=== PATIENT | male | born 2000 | race Hispanic/Latino ===

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

== ENCOUNTER 2022-10-08 15:30 | Emergency (ER) | payer OTHER ==
[~2022-10-08] VITALS: Ht 175.3 cm; Wt 70.4 kg
[2022-10-08 19:02] LABS: RSV AMPLIFICATION NEGATIVE (NEGATIVE)
[2022-10-08] MEDS ORDERED: IBUPROFEN 600MG TAB PO ONE (19:10)
[2022-10-08] MEDS ORDERED: IBUP1TAB6 PO (19:10)
[2022-10-08 19:15] VITALS: BP 138/88
== END 2022-10-08 19:20 | disposition home or self-care (01) ==
LOC: M ED 15:30
DX: J02.9 Acute pharyngitis, unspecified (principal); F84.0 Autistic disorder; F90.9 Attention-deficit hyperactivity disorder, unspecified type; G40.89 Other seizures; Z79.1 Long term (current) use of non-steroidal anti-inflammatories (NSAID)

== ENCOUNTER 2023-06-09 00:26 | Emergency (ER) | payer OTHER, SELFPAY ==
[~2023-06-09 00:26] MED LIST changes: +IBUP1TAB6 PO
[2023-06-09] MEDS ORDERED: NS 1,000 ML IV ONE (01:25)
[2023-06-09] MEDS ORDERED: diphenhydrAMINE 50MG/ML VIAL IV ONE (01:25)
[2023-06-09] MEDS ORDERED: METOCLOPRAMIDE INJ 10MG/2ML VIAL IV ONE (01:25)
[2023-06-09] MEDS ORDERED: ACETAMINOPHEN *IV* 1,000 MG in IV 1 EA IV ONE (01:25)
[2023-06-09 01:59] LABS: IONIZED CALCIUM 4.5 MG/DL (4.5-5.3)
[2023-06-09 02:04] LABS: BASO % 0.3 % (0.0-1.0); EOS # 0.2 10^3/uL (0.0-0.5); HEMATOCRIT 44.1 % (42.0-52.0); HEMOGLOBIN 15.4 g/dl (13.5-17.5); LYMPH # 2.9 10^3/uL (1.5-5.0); LYMPH % 32.4 % (24.0-44.0); MEAN CORPUSCULAR HEMOGLOBIN 29.8 pg (27.0-33.0); MEAN CORPUSCULAR HGB CONC 34.9 g/dl (32.0-36.5); MEAN CORPUSCULAR VOLUME 85.3 fl (80.0-96.0); MONO # 0.7 10^3/uL (0.0-0.8); MONO % 7.4 % (2.0-8.0); NEUTROPHILS # 5.1 10^3/uL (1.5-8.5); NEUTROPHILS % 57.8 % (36.0-66.0); PLATELET COUNT, AUTOMATED 250 10^3/uL (150-450); RED BLOOD COUNT 5.17 10^6/uL (4.30-6.10); WHITE BLOOD COUNT 8.9 10^3/uL (4.0-10.0)
[2023-06-09 02:45] LABS: ALBUMIN 4.1 G/DL (3.2-5.2); ALKALINE PHOSPHATASE 84 U/L (46-116); BILIRUBIN,DIRECT 0.4 MG/DL (<0.4); BILIRUBIN,TOTAL 1.1 MG/DL (0.3-1.2); BLOOD UREA NITROGEN 11 MG/DL (9-23); CARBON DIOXIDE LEVEL 28 MMOL/L (20-31); CHLORIDE LEVEL 104 MMOL/L (98-107); CREATININE FOR GFR 0.74 MG/DL (0.70-1.30); GLUCOSE, FASTING 91 MG/DL (60-100); MAGNESIUM LEVEL 2.3 MG/DL (1.8-2.4); PHOSPHORUS LEVEL 4.1 MG/DL (2.5-4.9); POTASSIUM SERUM 3.6 MMOL/L (3.5-5.1); SODIUM LEVEL 139 MMOL/L (136-145); TOTAL PROTEIN 6.4 G/DL (5.7-8.2)
[2023-06-09 03:01] LABS: ALT/SGPT 15 U/L (7.0-40); AST/SGOT 13 U/L (<34)
[2023-06-09] MEDS ORDERED: KEPP1TAB PO (04:36)
[2023-06-09] MEDS ORDERED: levETIRAcetam INJection 1,000 MG in D5W 100 ML IV ONE (04:40)
[2023-06-09 05:28] VITALS: BP 104/65; TEMP 97.2; O2SAT 16
== END 2023-06-09 05:51 | disposition home or self-care (01) ==
LOC: M ED 00:26
DX: G40.909 Epilepsy, unspecified, not intractable, without status epilepticus (principal); R51.9 Headache, unspecified; Z79.1 Long term (current) use of non-steroidal anti-inflammatories (NSAID); Z79.899 Other long term (current) drug therapy
CPT/HCPCS: 70450; 80048; 80076; 82140; 82330; 83605; 83735; 84100; 85025; 87486; 87581; 87633; 87798; 93041; 94760; 96365; 96366; 96375; 99284; J0131; J1100; J1200; J1953; J2765

== ENCOUNTER 2023-10-14 20:31 | Emergency (ER) | payer SELFPAY ==
[~2023-10-14] VITALS: Ht 175.3 cm; Wt 59.1 kg
[~2023-10-14 20:31] MED LIST changes: +KEPP1TAB PO
[2023-10-14 20:33] VITALS: BP 143/85; TEMP 97.8; O2SAT 100
== END 2023-10-15 00:15 | disposition home or self-care (01) ==
LOC: M ED 20:31
DX: S93.401A Sprain of unspecified ligament of right ankle, initial encounter (principal); W10.8XXA Fall (on) (from) other stairs and steps, initial encounter; F90.9 Attention-deficit hyperactivity disorder, unspecified type; F84.0 Autistic disorder; Y92.9 Unspecified place or not applicable; Y93.89 Activity, other specified; Y99.9 Unspecified external cause status

== ENCOUNTER 2023-12-18 14:49 | Emergency (ER) | payer SELFPAY ==
[~2023-12-18] VITALS: Ht 175.3 cm; Wt 67.7 kg
[2023-12-18] MEDS ORDERED: LEVE500T5 (15:02)
[2023-12-18 15:33] LABS: BASO % 0.3 % (0.0-1.0); EOS # 0.4 10^3/uL (0.0-0.5); HEMOGLOBIN 16.1 g/dl (13.5-17.5); LYMPH # 1.6 10^3/uL (1.5-5.0); LYMPH % 24.2 % (24.0-44.0); MEAN CORPUSCULAR HEMOGLOBIN 29.4 pg (27.0-33.0); MEAN CORPUSCULAR HGB CONC 34.3 g/dl (32.0-36.5); MEAN CORPUSCULAR VOLUME 85.9 fl (80.0-96.0); MONO # 0.6 10^3/uL (0.0-0.8); MONO % 8.5 % (2.0-8.0); NEUTROPHILS % 60.7 % (36.0-66.0); PLATELET COUNT, AUTOMATED 261 10^3/uL (150-450); RED BLOOD COUNT 5.47 10^6/uL (4.30-6.10); WHITE BLOOD COUNT 6.6 10^3/uL (4.0-10.0)
[2023-12-18] MEDS: levETIRAcetam INJection 1,000 MG in D5W 100 ML IV ONE (15:35)
[2023-12-18 16:02] LABS: ETHYL ALCOHOL (ETHANOL) 0.004 % (0.000-0.010)
[2023-12-18 16:04] LABS: ALBUMIN 4.3 G/DL (3.2-5.2); ALKALINE PHOSPHATASE 108 U/L (46-116); ALT/SGPT 24 U/L (7.0-40); AST/SGOT 9 U/L (<34); BILIRUBIN,DIRECT 0.4 MG/DL (<0.4); BILIRUBIN,TOTAL 1.2 MG/DL (0.3-1.2); BLOOD UREA NITROGEN 10 MG/DL (9-23); CALCIUM LEVEL 9.4 MG/DL (8.5-10.1); CARBON DIOXIDE LEVEL 30 MMOL/L (20-31); CHLORIDE LEVEL 107 MMOL/L (98-107); CREATININE FOR GFR 1.06 MG/DL (0.70-1.30); GLOMERULAR FILTRATION RATE > 60.0 (>60); GLUCOSE, FASTING 85 MG/DL (60-100); POTASSIUM SERUM 4.4 MMOL/L (3.5-5.1); SALICYLATE LEVEL < 3.0 MG/DL (<30); SODIUM LEVEL 142 MMOL/L (136-145); TOTAL PROTEIN 7.3 G/DL (5.7-8.2)
[2023-12-18 16:06] LABS: THYROID STIMULATING HORMONE 1.514 uIU/ML (0.55-4.78)
[2023-12-18] MEDS ORDERED: KEPP1TAB PO (16:43)
[2023-12-18 17:04] VITALS: BP 126/72; TEMP 98.1; O2SAT 98
== END 2023-12-18 17:11 | disposition home or self-care (01) ==
LOC: M ED 14:49
DX: G40.909 Epilepsy, unspecified, not intractable, without status epilepticus (principal); F90.9 Attention-deficit hyperactivity disorder, unspecified type; Z79.899 Other long term (current) drug therapy
CPT/HCPCS: 80048; 80076; 80143; 80177; 82077; 83605; 84443; 85025; 93005; 93041; 94760; 96365; 99285; J1953

== ENCOUNTER 2024-09-21 17:01 | Emergency (ER) | payer OTHER, SELFPAY ==
[~2024-09-21] VITALS: Ht 175.3 cm; Wt 71.8 kg
[~2024-09-21 17:01] MED LIST changes: +LEVE500T5
[2024-09-21 17:09] VITALS: TEMP 97.9
[2024-09-21] MEDS: levETIRAcetam INJection 1,000 MG in D5W 100 ML IV ONE (17:36)
[2024-09-21 18:30] VITALS: BP 135/93; O2SAT 98
== END 2024-09-21 18:53 | disposition home or self-care (01) ==
LOC: EDBD 17:01 → M ED 17:01
DX: G40.909 Epilepsy, unspecified, not intractable, without status epilepticus (principal); Z79.899 Other long term (current) drug therapy
CPT/HCPCS: 80047; 87486; 87581; 87633; 87798; 87880; 96365; 99284; J1953

== ENCOUNTER 2025-02-20 01:49 | Emergency (ER) | payer OTHER ==
[~2025-02-20] VITALS: Ht 177.8 cm; Wt 78.5 kg
[~2025-02-20 01:49] MED LIST changes: -IBUP1TAB6 PO; +SFHIBU600 PO
[2025-02-20 02:07] VITALS: TEMP 96.9
[2025-02-20] MEDS: levETIRAcetam INJection 1,000 MG in IV 1 EA IV ONE (02:22)
[2025-02-20 02:26] LABS: BASO # 0.0 10^3/uL (0.0-0.2); BASO % 0.4 % (0.0-1.0); EOS # 0.4 10^3/uL (0.0-0.5); EOS % 4.7 % (0.0-3.0); LYMPH # 2.5 10^3/uL (1.5-5.0); LYMPH % 33.2 % (24.0-44.0); MONO # 0.6 10^3/uL (0.0-0.8); MONO % 7.3 % (2.0-8.0); NEUTROPHILS # 4.1 10^3/uL (1.5-8.5); NEUTROPHILS % 54.3 % (36.0-66.0); PLATELET COUNT, AUTOMATED 262 10^3/uL (150-450)
[2025-02-20 03:02] LABS: ALT/SGPT 28 U/L (7.0-40); AST/SGOT 18 U/L (<34); CALCIUM LEVEL 8.4 MG/DL (8.5-10.1); CARBON DIOXIDE LEVEL 24 MMOL/L (20-31); CHLORIDE LEVEL 107 MMOL/L (98-107); CREATININE FOR GFR 0.91 MG/DL (0.70-1.30); GLOMERULAR FILTRATION RATE > 90.0 (>60); MAGNESIUM LEVEL 2.0 MG/DL (1.8-2.4); PHOSPHORUS LEVEL 3.4 MG/DL (2.5-4.9); POTASSIUM SERUM 3.6 MMOL/L (3.5-5.1); SODIUM LEVEL 144 MMOL/L (136-145)
[2025-02-20 03:49] LABS: ETHYL ALCOHOL (ETHANOL) 0.178 % (0.000-0.010)
[2025-02-20] MEDS: NS (Normal Saline) 0.9% 1,000 ML IV ONE (04:21)
[2025-02-20 10:00] VITALS: BP 138/63; O2SAT 98
== END 2025-02-20 10:35 | disposition home or self-care (01) ==
LOC: M ED 01:49
DX: G40.909 Epilepsy, unspecified, not intractable, without status epilepticus (principal); F10.129 Alcohol abuse with intoxication, unspecified; Z91.148 Patient's other noncompliance with medication regimen for other reason; Z79.899 Other long term (current) drug therapy
CPT/HCPCS: 80048; 80076; 82077; 82140; 82330; 83605; 83735; 84100; 85025; 93041; 94760; 96365; 96366; 96375; 99285; J1953; J2060